=== PATIENT | male | born 1995 | race Caucasian/White ===

== ENCOUNTER 2016-07-12 21:22 | Observation (INO) | payer BC ==
[~2016-07-12] VITALS: Ht 185.4 cm; Wt 92.3 kg
[2016-07-12] MEDS ORDERED: SODIUM CHLORIDE 0.9% 1000ML 1,000 ML IV STA ×2 (22:20→23:34)
[2016-07-12] MEDS ORDERED: ACETAMINOPHEN 500 MG TAB PO STA (22:20)
--- NOTE | 2016-07-12 22:32 | DIAGNOSTIC IMAGING REPORT ---
SINGLE VIEW CHEST CLINICAL HISTORY: Fever. FINDINGS: An AP, portable, upright chest radiograph is obtained. No prior studies are available for comparison at the time of dictation. The examination is mildly degraded by portable technique and patient rotation. The cardiomediastinal silhouette is unremarkable. The lungs and pleural spaces are clear. No pneumothorax is seen. The bony thorax is grossly intact. IMPRESSION: No active disease in the chest. Electronically signed by: Darwin Krishna M.D. 07/12/2016 10:30 PM Dictated Date/Time: 07/12/2016 10:29 PM
[2016-07-12 23:06] LABS: BUN/CREATININE RATIO 11.2 (10-20); C-REACTIVE PROTEIN 13.4 mg/dl (0-0.29); CALCIUM 8.7 mg/dl (8.5-10.1); CREATININE 1.1 mg/dl (0.60-1.40); POTASSIUM 4.1 mmol/L (3.5-5.1)
[2016-07-12 23:20] LABS: HEMATOCRIT 36.3 % (42-52); MEAN CELL VOLUME 81.2 fL (80-100); MEAN CORPUSCULAR HEMOGLOBIN 29.5 pg (25-34); MEAN CORPUSCULAR HGB CONC 36.4 g/dl (32-36); MEAN PLATELET VOLUME 10.2 fL (7.4-10.4); PLATELET COUNT 98 K/uL (130-400); RED BLOOD COUNT 4.47 M/uL (4.7-6.1); WHITE BLOOD COUNT 5.04 K/uL (4.8-10.8)
[2016-07-12 23:21] LABS: ALB/GLOB RATIO 1.1 (0.9-2); COMPLETE YES; IG% 0.2 %; LYMPH % 18.1 %; LYMPH ABS # 0.91 K/uL (1.2-3.4); MONO % 7.5 %; NEUT % 74.2 %; PLT ESTIMATE DECREASED
[2016-07-12 23:38] LABS: URINE APPEARANCE CLEAR (CLEAR); URINE BILIRUBIN NEG (NEG); URINE COLOR YELLOW; URINE NITRITE NEG (NEG); URINE PH 7.5 (4.5-7.5); URINE SPECIFIC GRAVITY 1.011 (1.000-1.030); UROBILINOGEN NEG (NEG); ZZUR CULT IF INDIC CLEAN CATCH NO
[2016-07-12 23:40] LABS: MANUAL MICROSCOPIC REQUIRED? NO; REVIEW REQ? NO
[2016-07-12 23:48] LABS: LYME DISEASE AB IGM NEG (NEG)
[2016-07-13] LABS: BENZODIAZEPINE, URINE NEG (NEG); COCAINE,URINE NEG (NEG); PHENCYCLIDINE, URINE NEG (NEG)
[2016-07-13 00:18] LABS: LYME DISEASE AB IGG NEG (NEG)
[2016-07-13] MEDS ORDERED: IV FLUIDS COMPLETED PRN (00:45)
--- NOTE | 2016-07-13 01:03 | EMERGENCY ROOM VISIT NOTE ---
History First contact with patient: 21:53 Chief Complaint: FLU LIKE SX Stated Complaint: 104 FEVER, MODI, SORE JOINTS, NAUSEA History of Present Illness The patient is a 21 year old male who presents to the Emergency Department by private vehicle for evaluation of his fever, headaches, joint pain, nausea. His symptoms developed yesterday. He has used Tylenol as well as Angelica-[place] without relief of symptoms. He complains of some mild neck pain as well as low back pain. He denies any recent sick contacts. He denies any sore throat, nasal congestion, cough and ear pressure, or abdominal pain. He denies any recent drug use or heavy alcohol use. He rates his current discomfort as an 8/ 10. He is up-to-date on all vaccinations and immunizations. He did not receive his influenza vaccination this year. He denies any blurry vision, double vision, slurred speech, facial droop, numbness/weakness to the extremities, chest pain, palpitations, shortness of breath, hematemesis, hematochezia, melena, hematuria, or dysuria. Review of Systems A complete 10-point Review of Systems was discussed with the patient, with pertinent positives and negatives listed in the History of Present Illness. All remaining Review of Systems questions can be considered negative unless otherwise specified. Past Medical/Surgical History Medical Problems: (1) Rhabdomyolysis (2) Thrombocytopenia Social History Smoking Status: Never Smoker Smokeless Tobacco Use: No Alcohol Use: occasionally Drug Use: none Marital Status: single Housing Status: lives with roommate Occupation Status: [employer] student Current/Historical Medications No Active Prescriptions or Reported Meds Allergies Coded Allergies: No Known Allergies (Unverified , 07/12/16) Physical Exam Vital Signs Date Time Temp Pulse Resp B/P Pulse Ox O2 Delivery O2 Flow Rate FiO2 07/12/16 23:31 37.0 95 18 137/69 99 Room Air 07/12/16 21:53 116 07/12/16 21:25 38.3 99 18 124/64 99 Room Air Pain Rating (0-10): 8 Physical Exam VITAL SIGNS - Vital signs and nursing notes were reviewed. GENERAL - Well nourished, well developed 21-year-old male in no acute distress. Pt communicates well with provider and answers questions appropriately. SKIN - Without rash. HEAD - NC/AT with no obvious deformities. EYES - PERRL with EOMI bilaterally. Sclera without injection. Palpebral conjunctiva pink and moist. EARS - No deformities of external structures noted on gross examination bilaterally. No pain elicited with palpation of the tragus bilaterally. External auditory canals without discharge or otorrhea. Tympanic membranes pearly goddadr without retraction or bulging. No fluid or purulent material visualized behind the TM. Handle of malleus, umbo, cone of light, pars tensa/ flaccid all easily visualized. NOSE - Midline and without cyanosis. No purulent drainage noted. Nasal mucosa without mucus discharge. MOUTH/OROPHARYNX - Without perioral cyanosis. Buccal mucosa pink and moist and without leukoplakia. Tongue midline with equal elevation of palate bilaterally. No tonsillar hypertrophy, erythema, or exudates noted. Good dentition noted. NECK - Neck with FROM. Supple to palpation. No lymphadenopathy noted. No nuchal rigidity. Negative Kernig's and Brudzinski's. LUNGS - Chest wall symmetric without accessory muscle use, intercostals retractions, or central cyanosis. Normal vesicular breath sounds CTA B/L. No wheezes, rales, or rhonchi appreciated. CARDIAC - RRR with S1/S2. No murmur, rubs, or gallops appreciated. ABDOMEN - Abdominal contour flat without pulsations or visible masses. BS normoactive all four quadrants. No tenderness, palpable masses, hepatosplenomegaly, or ascites noted. Medical Decision & Procedures ER Provider Diagnostic Interpretation: Radiological imaging and reports were reviewed by myself. Radiologist's Interpretation as follows: SINGLE VIEW CHEST CLINICAL HISTORY: Fever. FINDINGS: An AP, portable, upright chest radiograph is obtained. No prior studies are available for comparison at the time of dictation. The examination is mildly degraded by portable technique and patient rotation. The cardiomediastinal silhouette is unremarkable. The lungs and pleural spaces are clear. No pneumothorax is seen. The bony thorax is grossly intact. IMPRESSION: No active disease in the chest. Laboratory Results 07/12/16 22:35 Red Blood Count 4.47, Mean Corpuscular Volume 81.2, Mean Corpuscular Hemoglobin 29.5, Mean Corpuscular Hemoglobin Concent 36.4, Mean Platelet Volume 10.2, Neutrophils (%) (Auto) 74.2, Lymphocytes (%) (Auto) 18.1, Monocytes (%) (Auto) 7.5, Eosinophils (%) (Auto) 0.0, Basophils (%) (Auto) 0.0, Neutrophils # (Auto) 3.74, Lymphocytes # (Auto) 0.91, Monocytes # (Auto) 0.38, Eosinophils # (Auto) 0.00, Basophils # (Auto) 0.00 07/12/16 22:35 Test 07/12/16 21:40 07/12/16 22:35 07/12/16 23:30 Influenza Type A Antigen Neg for Influ A (NEG) Influenza Type B Antigen Neg for Influ B (NEG) White Blood Count 5.04 K/uL (4.8-10.8) Red Blood Count 4.47 M/uL (4.7-6.1) Hemoglobin 13.2 g/dL (14.0-18.0) Hematocrit 36.3 % (42-52) Mean Corpuscular Volume 81.2 fL (80-100) Mean Corpuscular Hemoglobin 29.5 pg (25-34) Mean Corpuscular Hemoglobin Concent 36.4 g/dl (32-36) Platelet Count 98 K/uL (130-400) Mean Platelet Volume 10.2 fL (7.4-10.4) Neutrophils (%) (Auto) 74.2 % Lymphocytes (%) (Auto) 18.1 % Monocytes (%) (Auto) 7.5 % Eosinophils (%) (Auto) 0.0 % Basophils (%) (Auto) 0.0 % Neutrophils # (Auto) 3.74 K/uL (1.4-6.5) Lymphocytes # (Auto) 0.91 K/uL (1.2-3.4) Monocytes # (Auto) 0.38 K/uL (0.11-0.59) Eosinophils # (Auto) 0.00 K/uL (0-0.5) Basophils # (Auto) 0.00 K/uL (0-0.2) RDW Standard Deviation 36.7 fL (36.4-46.3) RDW Coefficient of Variation 12.2 % (11.5-14.5) Immature Granulocyte % (Auto) 0.2 % Immature Granulocyte # (Auto) 0.01 K/uL (0.00-0.02) Platelet Estimate DECREASED Erythrocyte Sedimentation Rate 14 mm/hr (0-14) Anion Gap 8.0 mmol/L (3-11) Est Creatinine Clear Calc Drug Dose 121.0 ml/min Estimated GFR () 111.4 Estimated GFR (Non- 96.1 BUN/Creatinine Ratio 11.2 (10-20) Calcium Level 8.7 mg/dl (8.5-10.1) Magnesium Level 2.0 mg/dl (1.8-2.4) Total Bilirubin 0.8 mg/dl (0.2-1) Aspartate Amino Transf (AST/SGOT) 102 U/L (15-37) Alanine Aminotransferase (ALT/SGPT) 54 U/L (12-78) Alkaline Phosphatase 76 U/L (45-117) Total Creatine Kinase 3792 U/L (39-308) C-Reactive Protein 13.40 mg/dl (0-0.29) Total Protein 7.2 gm/dl (6.4-8.2) Albumin 3.7 gm/dl (3.4-5.0) Globulin 3.5 gm/dl (2.5-4.0) Albumin/Globulin Ratio 1.1 (0.9-2) Lipase 193 U/L (73-393) Lyme Disease IgG Antibody NEG (NEG) Lyme Disease IgM Antibody NEG (NEG) Monoscreen NEG (NEG) Urine Color YELLOW Urine Appearance CLEAR (CLEAR) Urine pH 7.5 (4.5-7.5) Urine Specific [place] 1.011 (1.000-1.030) Urine Protein NEG (NEG) Urine Glucose (UA) NEG (NEG) Urine Ketones NEG (NEG) Urine Occult Blood NEG (NEG) Urine Nitrite NEG (NEG) Urine Bilirubin NEG (NEG) Urine Urobilinogen NEG (NEG) Urine Leukocyte Esterase NEG (NEG) Urine Opiates Screen NEG (NEG) Urine Methadone, Qualitative NEG (NEG) Urine Barbiturates NEG (NEG) Urine Phencyclidine (PCP) Level NEG (NEG) Ur Amphetamine/Methamphetamine NEG (NEG) MDMA (Ecstasy) Screen NEG (NEG) Urine Benzodiazepines Screen NEG (NEG) Urine Cocaine Metabolite NEG (NEG) Urine Marijuana (THC) NEG (NEG) Medications Administered Medications (Trade) Dose Ordered Sig/Jese Route Start Time Stop Time Status Last Admin Dose Admin Sodium Chloride (Nss 1000ml) 1,000 ml @ 999 mls/hr Q1H1M STAT IV 07/12/16 22:20 07/12/16 23:20 DC 07/12/16 22:31 999 MLS/HR Acetaminophen 1000 mg 1,000 mg NOW STAT PO 07/12/16 22:20 07/12/16 22:23 DC 07/12/16 22:31 1,000 MG Sodium Chloride (Nss 1000ml) 1,000 ml @ 999 mls/hr Q1H1M STAT IV 07/12/16 23:34 07/13/16 00:34 DC 07/12/16 23:36 999 MLS/HR ED Course Patient was seen and evaluated by myself. Labs were drawn, saline lock in place. The patient was hydrated with a 1000 mL normal saline bolus. He received 1 g of Tylenol orally for fever. Laboratory results demonstrate no acute leukocytosis, significant anemia, or bandemia. The patient has no significant electrolyte abnormalities. CPK was found to be substantially elevated at 3792. CRP was elevated at 13.4. Urinalysis demonstrates no significant findings. Patient was reevaluated and reports feeling somewhat better at this time. He is now afebrile with a temperature of 37.0C. He was hydrated with an additional 1000 mL of normal saline. Urine tox was found to be negative. Lyme titers as well as influenza, mono, and strep were negative. On review the patient, he adamantly declines the use of illicit substances or significant alcohol use. He denies the use of any supplements, specifically pre -workout or creatinine. He denies the use of testosterone or anabolic steroids. He reports that he feels much better at this point and was this without a headache. He still complains of joint pains, however. Case was reviewed with the [facility] hospitalist who agrees to admit the patient for further evaluation and management. Patient admitted in stable condition. Medical Decision Given the patient's presentation and exam findings, I did elect to perform the above-mentioned workup. The patient presents to the emergency department with fever and diffuse aches and pains. He has no upper respiratory symptoms. Given the fever and associated myalgias in the setting of a patient without upper respiratory findings, I did elect to perform a CPK in addition to the typical evaluation. His chest x-ray was unremarkable. [place], Strep, influenza, and Lyme were all negative. CPK was significantly elevated. At this point, I am uncertain as to why the patient is in rhabdomyolysis. Regardless, the patient warrants vigorous intravenous hydration and close monitoring of his CPK. He does have a decreased platelet count which certainly can be seen in the setting of a viral infection. The patient has no meningeal findings on exam. His headache resolved with reduction of fever and aggressive fluid management. The patient will be admitted to the hospitalist program. Patient admitted in stable condition. In the evaluation and treatment of this patient, the following differential diagnoses were considered: Meningitis, encephalitis, mono, strep, pneumonia, bronchitis, influenza, amongst others. Impression Primary Impression: Rhabdomyolysis Additional Impressions: Influenza-like symptoms myalgias Departure Information Dispostion Admitted as an inpatient Condition FAIR Prescriptions No Active Prescriptions or Reported Meds Referrals [facility] (PCP) Patient Instructions [facility] Problem Qualifiers Primary Impression: Rhabdomyolysis Rhabdomyolysis type: non-traumatic Qualified Codes: M62.82 - Rhabdomyolysis
[2016-07-13] MEDS ORDERED: LORAZEPAM 2 MG/ML 1 ML VIAL IV PRN (01:45)
[2016-07-13] MEDS ORDERED: DiphenhydrAMINE HCL 50 MG/ML VIAL IV PRN (01:45)
[2016-07-13] MEDS ORDERED: ONDANSETRON INJ 2 MG/ML 2 ML VIAL IV PRN (01:45)
[2016-07-13] MEDS ORDERED: MAGNESIUM HYDROXIDE SUSP 30 ML UDC PO PRN (01:45)
[2016-07-13] MEDS ORDERED: PROMETHAZINE HCL INJ 12.5 MG in SODIUM CHLORIDE 0.9% 50ML 50 ML IV PRN (01:45)
[2016-07-13] MEDS ORDERED: MoRPHine SULFATE 2 MG/ML CARP IV PRN (01:45)
[2016-07-13] MEDS ORDERED: ZOLPIDEM TARTRATE 5 MG TAB PO PRN ×2 (01:45)
[2016-07-13] MEDS ORDERED: ALUMINUM/MAGNESIUM/SIMETH (MAALOX MAX) 30 ML UDC PO PRN (01:45)
[2016-07-13] MEDS ORDERED: ACETAMINOPHEN 325 MG TAB PO PRN ×2 (01:45)
[2016-07-13] MEDS ORDERED: LORAZEPAM INJ 0.5 MG in SYRINGE 0.75 ML IV PRN (02:15)
[2016-07-13 02:26] VITALS: BP 124/72; PULSE 97; TEMP 37.3; O2SAT 100; Ht 185.4 cm; Wt 92.3 kg
[2016-07-13] MEDS: NSS + 20MEQ KCL 1000ML 1,000 ML IV SCH ×3 (02:52→12:32)
--- NOTE | 2016-07-13 05:02 | History and Physical ---
History & Physical Date & Time of Service: Jul 13, 2016 at 04:55 Chief Complaint: Rhabdomyolysis, Thrombocytopenia Primary Care Physician: [facility] History of Present Illness Source: patient The patient is a 21-year-old male who presents to the emergency department by private vehicle with complaint of headaches, generalized joint pain, fever and nausea that began yesterday. He tried both Tylenol and Angelica-[place] without improvement in symptoms. 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 He does exercise regularly with lifting weights and running, and does not take any protein supplements. Social History Smoking Status: Never Smoker Smokeless Tobacco Use: No Drug Use: none Marital Status: single Housing status: lives with friends Occupational Status: [employer] student Multi-Drug Resistant Organisms History of MDRO: No Allergies Coded Allergies: No Known Allergies (Unverified , 07/12/16) Home Medications No Active Prescriptions or Reported Meds Review of Systems The patient denies chest pain, palpitations, shortness of breath, cough, lower extremity swelling, vision change, hearing change, sore throat, fevers, chills, sweats, weight change, vomiting, abdominal pain, pelvic pain, blood in urine or stool, dysuria, urinary frequency or urgency, lightheadedness, dizziness, headache, memory loss, rash, abnormal bruising or bleeding, imbalance, focal weakness, numbness or tingling in arms or legs, night sweats, or allergy symptoms. The review of systems is otherwise negative other than for that already noted above, and at least 10 systems have been reviewed. Physical Exam Vital Signs Date Time Temp Pulse Resp B/P Pulse Ox O2 Delivery O2 Flow Rate FiO2 07/13/16 02:26 37.3 97 16 124/72 100 Room Air 07/13/16 01:15 92 18 129/78 99 Room Air 07/12/16 23:31 37.0 95 18 137/69 99 Room Air 07/12/16 21:53 116 07/12/16 21:25 38.3 99 18 124/64 99 Room Air The patient is awake, well-developed and adequately nourished, alert and oriented 3, normocephalic and atraumatic, lying in bed and in no acute distress. HEENT--PERRL, EOMI, mucous membranes moist, and oropharynx normal. Neck--supple, no JVD or bruits, thyroid normal, trachea midline, no adenopathy. Heart--normal S1 and S2, no extra beats, no murmurs, rubs or gallops. Lungs--clear bilaterally with good air movement, no respiratory distress, no accessory muscle use. Abdomen--normal bowel sounds and soft, nontender and nondistended, no hernias or masses, no organomegaly. Extremities--no cyanosis, clubbing or edema. There are good distal pulses b/l. Dermatologic--normal skin turgor, normal color, warm and dry, no abnormal lymph nodes, no rash. Neurologic--cranial nerves II through XII grossly intact, motor and sensory examination normal Rheumatologic--normal range of motion, mildly tender muscles and joints. Psychiatric--normal affect. Diagnostics Laboratory Results Results Past 24 Hours Test 07/12/16 21:40 07/12/16 22:35 07/12/16 23:30 07/13/16 04:44 Range/Units Influenza Type A Antigen Neg for Influ A NEG Influenza Type B Antigen Neg for Influ B NEG White Blood Count 5.04 4.8-10.8 K/uL Red Blood Count 4.47 4.7-6.1 M/uL Hemoglobin 13.2 14.0-18.0 g/dL Hematocrit 36.3 42-52 % Mean Corpuscular Volume 81.2 80-100 fL Mean Corpuscular Hemoglobin 29.5 25-34 pg Mean Corpuscular Hemoglobin Concent 36.4 32-36 g/dl Platelet Count 98 130-400 K/uL Mean Platelet Volume 10.2 7.4-10.4 fL Neutrophils (%) (Auto) 74.2 % Lymphocytes (%) (Auto) 18.1 % Monocytes (%) (Auto) 7.5 % Eosinophils (%) (Auto) 0.0 % Basophils (%) (Auto) 0.0 % Neutrophils # (Auto) 3.74 1.4-6.5 K/uL Lymphocytes # (Auto) 0.91 1.2-3.4 K/uL Monocytes # (Auto) 0.38 0.11-0.59 K/uL Eosinophils # (Auto) 0.00 0-0.5 K/uL Basophils # (Auto) 0.00 0-0.2 K/uL RDW Standard Deviation 36.7 36.4-46.3 fL RDW Coefficient of Variation 12.2 11.5-14.5 % Immature Granulocyte % (Auto) 0.2 % Immature Granulocyte # (Auto) 0.01 0.00-0.02 K/uL Platelet Estimate DECREASED Erythrocyte Sedimentation Rate 14 0-14 mm/hr Sodium Level 135 136-145 mmol/L Potassium Level 4.1 3.5-5.1 mmol/L Chloride Level 100 98-107 mmol/L Carbon Dioxide Level 27 21-32 mmol/L Anion Gap 8.0 3-11 mmol/L Blood Urea Nitrogen 12 7-18 mg/dl Creatinine 1.10 0.60-1.40 mg/dl Est Creatinine Clear Calc Drug Dose 121.0 ml/min Estimated GFR () 111.4 Estimated GFR (Non- 96.1 BUN/Creatinine Ratio 11.2 10-20 Random Glucose 115 70-99 mg/dl Calcium Level 8.7 8.5-10.1 mg/dl Magnesium Level 2.0 1.8-2.4 mg/dl Total Bilirubin 0.8 0.2-1 mg/dl Aspartate Amino Transf (AST/SGOT) 102 15-37 U/L Alanine Aminotransferase (ALT/SGPT) 54 12-78 U/L Alkaline Phosphatase 76 45-117 U/L Total Creatine Kinase 3792 39-308 U/L C-Reactive Protein 13.40 0-0.29 mg/dl Total Protein 7.2 6.4-8.2 gm/dl Albumin 3.7 3.4-5.0 gm/dl Globulin 3.5 2.5-4.0 gm/dl Albumin/Globulin Ratio 1.1 0.9-2 Lipase 193 73-393 U/L Lyme Disease IgG Antibody NEG NEG Lyme Disease IgM Antibody NEG NEG Monoscreen NEG NEG Urine Color YELLOW Urine Appearance CLEAR CLEAR Urine pH 7.5 4.5-7.5 Urine Specific [place] 1.011 1.000-1.030 Urine Protein NEG NEG Urine Glucose (UA) NEG NEG Urine Ketones NEG NEG Urine Occult Blood NEG NEG Urine Nitrite NEG NEG Urine Bilirubin NEG NEG Urine Urobilinogen NEG NEG Urine Leukocyte Esterase NEG NEG Urine Opiates Screen NEG NEG Urine Methadone, Qualitative NEG NEG Urine Barbiturates NEG NEG Urine Phencyclidine (PCP) Level NEG NEG Ur Amphetamine/Methamphetamine NEG NEG MDMA (Ecstasy) Screen NEG NEG Urine Benzodiazepines Screen NEG NEG Urine Cocaine Metabolite NEG NEG Urine Marijuana (THC) NEG NEG Microbiology Results 07/12/16 Group A Streptococcus Screen - Final, Resulted SPECIMEN NEGATIVE FOR GROUP A BETA ST... 07/12/16 Group A Streptococcus Screen (KENJI), Resulted Pending Diagnostic Radiology Patient Name: JO NOONAN Unit Number: [id number] Dictated: 07/12/162228 Transcribed: 07/12/162228 EV Printed Date/Time: [~ rep prt dt]/[~ rep prt tm] [~ rep ct labl] - [~ rep ct ivnm] [facility] [place] [place] [address] Dictated: 07/12/162228 Transcribed: 07/12/162228 EV Printed Date/Time: [~ rep prt dt]/[~ rep prt tm] [~ rep ct labl] - [~ rep ct ivnm] SINGLE VIEW CHEST CLINICAL HISTORY: Fever. FINDINGS: An AP, portable, upright chest radiograph is obtained. No prior studies are available for comparison at the time of dictation. The examination is mildly degraded by portable technique and patient rotation. The cardiomediastinal silhouette is unremarkable. The lungs and pleural spaces are clear. No pneumothorax is seen. The bony thorax is grossly intact. IMPRESSION: No active disease in the chest. Electronically signed by: Darwin Krishna M.D. 07/12/2016 10:30 PM Dictated Date/Time: 07/12/2016 10:29 PM The status of this report is Signed. Draft = Not yet reviewed or approved by Radiologist. Signed = Reviewed and approved by Radiologist. <AttendingPhy></AttendingPhy> <FamilyPhy>[facility]</FamilyPhy> <PrimaryPhy>[facility]</PrimaryPhy> <UnitNumber>[id number]</ UnitNumber> <VisitNumber>[id number]</VisitNumber> <PatientName>JO NOONAN</PatientName> <DateOfBirth>1995</DateOfBirth> <Location >[facility]</Location> <ServiceDate>07/12/16</ServiceDate> <MNE>ESINDI</MNE> < OrderingPhy>Joshua Moore-Miguel</OrderingPhy> <OrderingPhyMNE>f rep ord dr castellanos</ OrderingPhyMNE> <DictatingPhyMNE>f rep dict dr castellanos</DictatingPhyMNE> <CCListMNE> f rep ct mne</CCListMNE> <AdmittingPhyMNE>f pt admit dr castellanos</AdmittingPhyMNE> < AttendingPhyMNE>f pt attend dr castellanos</AttendingPhyMNE> <ConsultingPhyMNE>f pt consult dr castellanos</ConsultingPhyMNE> <FamilyPhyMNE>f pt fam dr castellanos</FamilyPhyMNE> <OtherPhyMNE>f pt other dr castellanos</OtherPhyMNE> < PrimaryPhyMNE>f pt prim care dr castellanos</PrimaryPhyMNE> <ReferringPhyMNE>f pt referring dr castellanos</ReferringPhyMNE> Impression Assessment and Plan Rhabdomyolysis--the patient will be admitted to the medical floor. We'll aggressively rehydrate with IV fluids, and follow serial basic metabolic panel, CK and magnesium levels. Thrombocytopenia--we'll repeat laboratories in the a.m. The patient's symptoms most consistent with a viral syndrome. His treatment overnight will primarily be supportive, with additional viral studies pending at this time. Level of Care Med/Surg Advanced Directives Existing Advance Directive: No Existing Living Will: No Existing Power of Graduate Engineer: No Resuscitation Status FULL RESUSCITATION VTE Prophylaxis VTE Risk Assessment Done? Y/N: Yes Risk Level: Moderate Social Service Consult None Apply
[2016-07-13 06:27] LABS: HEMATOCRIT 33.5 % (42-52); MEAN CELL VOLUME 81.1 fL (80-100); MEAN CORPUSCULAR HEMOGLOBIN 28.3 pg (25-34); MEAN CORPUSCULAR HGB CONC 34.9 g/dl (32-36); RED BLOOD COUNT 4.13 M/uL (4.7-6.1); WHITE BLOOD COUNT 3.76 K/uL (4.8-10.8)
[2016-07-13 06:28] LABS: MEAN PLATELET VOLUME 10.4 fL (7.4-10.4); PLATELET COUNT 90 K/uL (130-400)
[2016-07-13 06:39] LABS: BUN/CREATININE RATIO 11.3 (10-20); CALCIUM 7.9 mg/dl (8.5-10.1)
[2016-07-13 06:48] LABS: BASO % 0.3 %; BASO ABS # 0.01 K/uL (0-0.2); COMPLETE YES; EOS % 0.3 %; IG% 0.3 %; LYMPH % 24.2 %; LYMPH ABS # 0.91 K/uL (1.2-3.4); MONO % 14.9 %
[2016-07-13 07:21] VITALS: BP 111/46; PULSE 119; TEMP 39.2; O2SAT 94
[2016-07-13 08:00] VITALS: O2SAT 94
[2016-07-13 08:30] VITALS: TEMP 37.6
[2016-07-13 12:06] VITALS: TEMP 38.2
--- NOTE | 2016-07-13 14:11 | Discharge Instructions ---
Discharge Instructions Admission Reason for Admission: Rhabdomyolysis, Thrombocytopenia (Marianna Stark MD) Discharge Discharge Diagnosis / Problem: Rhabdomyolysis, thrombocytopenia (Marianna Stark MD) Discharge Goals Goal(s): Decrease discomfort, Learn about illness (Marianna Stark MD) Activity Recommendations Activity Limitations: per Instructions/Follow-up section Exercise/Sports Limitations: none Shower/Bathe: no limitations Driving or Machine Use: no limitations Try not to overexert yourself, avoid strenuous activity. . (Marianna Stark MD) Instructions / Follow-Up Instructions / Follow-Up You were admitted with fevers, generalized joint pains and headaches. your lab work revealed an elevated CPK level suggestive of rhabdomyolysis likely due to a viral illness . urinalysis, toxicology, flu A and B and lyme were negative. CMV and Parvo virus serology are still pending at the moment. Your CPK was elevated at 3792 and has come down toady to 2837, your platelets were found to be low at 90 K today - Please follow up with S on 07/15 at 2.30 PM and you will need to get some blood work like CBC, CMP and CPK, scripts have been enclosed. - Continue to increase fluid intake - Do not over exert yourself and avoid strenuous physical activity and Non steroidal drugs like Motrin, ibuprofen - Return to the ER if you develop high fever, intractable nausea or vomiting or headaches with sensitivity to bright lights (Marianna Stark MD) Current Hospital Diet Patient's current hospital diet: Regular Diet (Marianna Stark MD) Discharge Diet Recommended Diet: Regular Diet (Marianna Stark MD) Pending Studies Studies pending at discharge: yes List of pending studies: CMV parvo virus serology (Marianna Stark MD) Laboratory Results Last 24 Hours Test 07/12/16 21:40 07/12/16 22:35 07/12/16 23:30 07/13/16 05:41 Influenza Type A Antigen Neg for Influ A Influenza Type B Antigen Neg for Influ B White Blood Count 5.04 K/uL 3.76 K/uL Red Blood Count 4.47 M/uL 4.13 M/uL Hemoglobin 13.2 g/dL 11.7 g/dL Hematocrit 36.3 % 33.5 % Mean Corpuscular Volume 81.2 fL 81.1 fL Mean Corpuscular Hemoglobin 29.5 pg 28.3 pg Mean Corpuscular Hemoglobin Concent 36.4 g/dl 34.9 g/dl Platelet Count 98 K/uL 90 K/uL Mean Platelet Volume 10.2 fL 10.4 fL Neutrophils (%) (Auto) 74.2 % 60.0 % Lymphocytes (%) (Auto) 18.1 % 24.2 % Monocytes (%) (Auto) 7.5 % 14.9 % Eosinophils (%) (Auto) 0.0 % 0.3 % Basophils (%) (Auto) 0.0 % 0.3 % Neutrophils # (Auto) 3.74 K/uL 2.26 K/uL Lymphocytes # (Auto) 0.91 K/uL 0.91 K/uL Monocytes # (Auto) 0.38 K/uL 0.56 K/uL Eosinophils # (Auto) 0.00 K/uL 0.01 K/uL Basophils # (Auto) 0.00 K/uL 0.01 K/uL RDW Standard Deviation 36.7 fL 36.6 fL RDW Coefficient of Variation 12.2 % 12.4 % Immature Granulocyte % (Auto) 0.2 % 0.3 % Immature Granulocyte # (Auto) 0.01 K/uL 0.01 K/uL Platelet Estimate DECREASED Erythrocyte Sedimentation Rate 14 mm/hr Sodium Level 135 mmol/L 138 mmol/L Potassium Level 4.1 mmol/L 4.0 mmol/L Chloride Level 100 mmol/L 104 mmol/L Carbon Dioxide Level 27 mmol/L 28 mmol/L Anion Gap 8.0 mmol/L 6.0 mmol/L Blood Urea Nitrogen 12 mg/dl 11 mg/dl Creatinine 1.10 mg/dl 1.00 mg/dl Est Creatinine Clear Calc Drug Dose 121.0 ml/min 133.1 ml/min Estimated GFR () 111.4 125.0 Estimated GFR (Non- 96.1 107.9 BUN/Creatinine Ratio 11.2 11.3 Random Glucose 115 mg/dl 105 mg/dl Calcium Level 8.7 mg/dl 7.9 mg/dl Magnesium Level 2.0 mg/dl 2.0 mg/dl Total Bilirubin 0.8 mg/dl Aspartate Amino Transf (AST/SGOT) 102 U/L Alanine Aminotransferase (ALT/SGPT) 54 U/L Alkaline Phosphatase 76 U/L Total Creatine Kinase 3792 U/L 2837 U/L C-Reactive Protein 13.40 mg/dl Total Protein 7.2 gm/dl Albumin 3.7 gm/dl Globulin 3.5 gm/dl Albumin/Globulin Ratio 1.1 Lipase 193 U/L Lyme Disease IgG Antibody NEG Lyme Disease IgM Antibody NEG Monoscreen NEG Urine Color YELLOW Urine Appearance CLEAR Urine pH 7.5 Urine Specific [place] 1.011 Urine Protein NEG Urine Glucose (UA) NEG Urine Ketones NEG Urine Occult Blood NEG Urine Nitrite NEG Urine Bilirubin NEG Urine Urobilinogen NEG Urine Leukocyte Esterase NEG Urine Opiates Screen NEG Urine Methadone, Qualitative NEG Urine Barbiturates NEG Urine Phencyclidine (PCP) Level NEG Ur Amphetamine/Methamphetamine NEG MDMA (Ecstasy) Screen NEG Urine Benzodiazepines Screen NEG Urine Cocaine Metabolite NEG Urine Marijuana (THC) NEG (Marianna Stark MD) Medical Emergencies . Who to Call and When: Medical Emergencies: If at any time you feel your situation is an emergency, please call 911 immediately. . (Marianna Stark MD) Non-Emergent Contact Non-Emergency issues call your: Primary Care Provider Call Non-Emergent contact if: temperature is above 100.5, your pain is worsening . (Marianna Stark MD) . "Provider Documentation" section prepared by Marianna Stark. (Marianna Stark MD) VTE Core Measure Inpt VTE Proph given/why not?: SCD's (Marianna Stark MD)
--- NOTE | 2016-07-13 14:22 | Discharge Summary ---
Discharge Summary Admission Date: Jul 13, 2016 at 00:35 Discharge Date: Jul 13, 2016 Discharge Disposition: Home Principal Diagnosis: rhabdomyolysis (Marianna Stark MD) Medication Reconciliation Medication Profile: No Active Prescriptions or Reported Meds Discharge Exam Doing well, no issues overnight Review of Systems: Constitutional: No chills, No fever Eyes: No worsening of vision ENT: No hearing loss Respiratory: No cough, No shortness of breath, No sputum Cardiovascular: No chest pain Abdomen: No pain, No vomiting Musculoskeletal: No joint pain, No muscle pain Genitourinary - Male: No dysuria, No hematuria, No urinary frequency Neurologic: No memory loss Endocrine: No fatigue Physical Exam: General Appearance: WD/WN, no apparent distress Eyes: normal inspection ENT: normal ENT inspection, hearing grossly normal Neck: supple, no adenopathy Respiratory/Chest: chest non-tender, lungs clear, normal breath sounds, no respiratory distress Cardiovascular: regular rate, rhythm, no edema Abdomen / GI: normal bowel sounds, non tender, soft Extremities: normal inspection, no calf tenderness Neurologic/Psychiatric: alert, normal mood/affect, oriented x 3 Skin: normal color (Marianna Stark MD) Hospital Course The patient is a 21-year-old male who presents to the emergency department by private vehicle with complaint of headaches, generalized joint pain, fever and nausea that began yesterday. He tried both Tylenol and Angelica-Arthur without improvement in symptoms. 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 He does exercise regularly with lifting weights and running, and does not take any protein supplements. Rhabdomyolysis-- likely sec to viral illness -IVF @200 mls/hr Serial CPK 3792---->2837 - Influenza negative, lyme negative, mono- negative , CMV, Parvo pending, urine toxicology negative Thrombocytopenia-- - 98k-->90k The patient's symptoms most consistent with a viral syndrome. Recommended to repeat CPK, CBC, CMP and follow up in 2-3 days with PCP Total Time Spent: Less than 30 minutes This includes examination of the patient, discharge planning, medication reconciliation, and communication with other providers. (Marianna Stark MD) Discharge Instructions Please refer to the electronic Patient Visit Report (Discharge Instructions) for additional information. (Marianna Stark MD) Follow-Up with PCP in 2-3 days (Marianna Stark MD) Reviewed: Pt Seen/Exam by Me, HO Notes, Labs (Janette Faith MD) History Resident Physician Supervision Note: I was present with Dr. Stark during the history and exam. I discussed the case with the resident and agree with the findings and plan as documented in the note. Any exceptions or clarifications are listed here: Pt feeling much better, no neck stiffness, no headache, no photophobia, no muscle soreness. is tory po. Still with low grade fever but feels much improved. Vitals reviewed NAD, AAOx3 RRR no mgr CTAB no wcr Abd soft NT ND +BS Ext no edema or TTP over muscle groups No neck tenderness, neg Kernig's/Brudzinski A/P: 21 yo male with febrile illness, mild elevation of CPK/mild rhabdo, leukopenia, thrombocytopenia without evidence of bleeding. Most likely viral illness. Much improved after IVFs. Ok for discharge to home, refrain from strenuous physical activity until CK returns to normal. F/u with repeat CBC and CPK within 1 day at [facility]. Documented By: Janette Faith (Janette Faith MD)
--- NOTE | 2016-07-13 15:10 | Medical Student: [facility] ---
Discharge Summary Admission Date: Jul 13, 2016 at 00:35 Discharge Date: Jul 13, 2016 Discharge Disposition: Home Principal Diagnosis: Rhabdomyolysis Problems/Secondary Diagnoses: thrombocytopenia, viral infection Medications: Current Inpatient Medications Medications (Trade) Dose Ordered Sig/Jese Route Start Time Stop Time Status Last Admin Dose Admin Miscellaneous (Iv Fluids Completed) 1 ea PRN PRN N/A 07/13/16 00:45 07/13/17 00:44 Zolpidem Tartrate (Ambien Tab) 5 mg HSZ PRN PO 07/13/16 01:45 08/12/16 01:44 Acetaminophen (Tylenol Tab) 650 mg Q4H PRN PO 07/13/16 01:45 08/12/16 01:44 07/13/16 07:27 650 MG Magnesium Hydroxide (Milk Of Magnesia Susp) 30 ml Q6H PRN PO 07/13/16 01:45 08/12/16 01:44 Diphenhydramine HCl (Benadryl Inj) 25 mg Q4H PRN IV 07/13/16 01:45 08/12/16 01:44 Al Hydrox/Mg Hydrox/ Simethicone 15 ml 15 ml Q4H PRN PO 07/13/16 01:45 08/12/16 01:44 Promethazine HCl/ Sodium Chloride (Phenergan Inj/ Nss 50ml) 50.5 ml @ 202 mls/hr Q4H PRN IV 07/13/16 01:45 08/12/16 01:44 Ondansetron HCl (Zofran Inj) 4 mg Q6H PRN IV 07/13/16 01:45 08/12/16 01:44 Morphine Sulfate 2 mg 2 mg Q2H PRN IV 07/13/16 01:45 07/27/16 01:44 Potassium Chloride/Sodium Chloride 1,000 ml @ 200 mls/hr Q5H IV 07/13/16 02:00 08/12/16 01:59 07/13/16 12:32 200 MLS/HR Lorazepam/Syringe (Ativan Inj/ Syringe) 1 ml @ 1 mls/min Q4H PRN IV 07/13/16 02:15 08/12/16 02:14 Discharge Exam Review of Systems: Constitutional: + fever Abdomen: + nausea Musculoskeletal: + joint pain, + muscle pain Neurologic: + problem reported (headache) Hospital Course initially presented with fever, headache, joint pain, nausea, back and neck pain. Denied photophobia. labs showed elevated CPK of 3792 and mild thrombocytopenia (90k platelets). was admitted, treated with IV normal saline UA normal, no evidence of myoglobinuria. Still experiencing mild fever upon discharge but states that his presenting symptoms have all resolved. Total Time Spent: Greater than 30 minutes This includes examination of the patient, discharge planning, medication reconciliation, and communication with other providers. Discharge Instructions Please refer to the electronic Patient Visit Report (Discharge Instructions) for additional information. Follow-Up f/u labs (CBC w/diff, CMP, CPK) on Wednesday. f/u scheduled with [facility]. return to emergency room if muscle aches or arthralgias increase in severity.
[2016-07-13 15:21] VITALS: BP 111/46; PULSE 119; TEMP 38.2; O2SAT 94
[2016-07-16 13:53] LABS: CYTOMEGALOVIRUS IGG AB <0.91; PARVOVIRUS IgG INDEX 7.3 index (<0.9); PARVOVIRUS IgM INDEX 0.2 index (<0.9)
== END 2016-07-13 17:09 | disposition home or self-care (01) ==
LOC: CANRESERV → ENRESERVDT → ENRESERVTM → C.EDB 21:24 → C.MS4W 07-13 00:35
PROVIDERS: ADMIT Hospitalist; ATTEND Family Medicine
DX: M62.82 Rhabdomyolysis (principal); D69.6 Thrombocytopenia, unspecified; D72.819 Decreased white blood cell count, unspecified